=== PATIENT | male | born 1950 | race Caucasian/White ===

== ENCOUNTER 2017-09-29 19:05 | Emergency (ER) | payer MEDICARE ==
[~2017-09-29] VITALS: Ht 177.8 cm; Wt 108.9 kg
[~2017-09-29 19:05] MED LIST: "\\\"WATER PILL\\\""; AMLO5; GOUT MEDICATION; POTCHL10ER; THYROID MEDICATION
[2017-09-29] MEDS ORDERED: Kristalose20 GM PO (20:24)
[2017-09-29 20:28] LABS: Source, Urine Catheter
[2017-09-29 20:33] LABS: Bilirubin, Urine Neg (Neg); Blood, Urine 4+ (Neg); Glucose Qualitative, Urine Neg (Neg); Ketones, Urine Neg (Neg); Leukocyte Esterase, Urine Neg (Neg); Nitrite, Urine Neg (Neg); Protein, Urine Neg (Neg); Specific Gravity, Urine 1.005 (1.003-1.022); Urobilinogen, Urine NORM (Normal); pH, Urine 6.5 (5.0-8.0)
[2017-09-29 21:11] LABS: Appearance, Urine Clear (Clear); Color, Urine Pale Yellow (P-Yellow)
[2017-09-29 21:12] LABS: Amorphous Light (0-Heavy); Bacteria Few /hpf; Red Blood Cells, Urine 0-2 /hpf (0-2); Squamous Epithelial Cells Not Seen /hpf (Few); White Blood Cells, Urine 0-2 /hpf (0-5)
== END 2017-09-29 20:43 | disposition home or self-care (01) ==
LOC: ER 19:05
PROVIDERS: Emergency Medicine
DX: R33.9 Retention of urine, unspecified (principal); Z91.030 Bee allergy status; Z88.8 Allergy status to other drugs, medicaments and biological substances; Z79.899 Other long term (current) drug therapy; Z90.5 Acquired absence of kidney
CPT/HCPCS: 51702; 51798; 81001; 99283

== ENCOUNTER 2017-10-02 07:05 | Emergency (ER) | payer MEDICARE ==
[~2017-10-02] VITALS: Ht 162.6 cm; Wt 120.2 kg
[~2017-10-02 07:05] MED LIST changes: +Kristalose20 GM PO
== END 2017-10-02 07:51 | disposition home or self-care (01) ==
LOC: ER 07:05
DX: N99.840 Postprocedural hematoma of a genitourinary system organ or structure following a genitourinary system procedure (principal); N99.820 Postprocedural hemorrhage of a genitourinary system organ or structure following a genitourinary system procedure; Z91.030 Bee allergy status; Z88.8 Allergy status to other drugs, medicaments and biological substances; Z79.899 Other long term (current) drug therapy
CPT/HCPCS: 99282

== ENCOUNTER 2019-03-09 13:38 | Emergency (ER) | payer MEDICARE ==
[~2019-03-09] VITALS: Ht 177.8 cm; Wt 122.5 kg
[2019-03-09 14:10] LABS: BASOPHILS ABSOLUTE AUTO 0.04 K/mm3 (0.00-0.23); BASOPHILS PERCENT AUTO 1 % (0-2); EOSINOPHILS ABSOLUTE AUTO 0.09 K/mm3 (0.00-0.68); EOSINOPHILS PERCENT AUTO 1 % (0-6); Hematocrit 46.1 % (37.0-53.0); IMMATURE GRAN ABSOLUTE AUTO 0.05 K/mm3 (0.00-0.10); IMMATURE GRAN PERCENT AUTO 1 % (0-1); LYMPHOCYTES ABSOLUTE AUTO 1.29 K/mm3 (0.84-5.20); LYMPHOCYTES PERCENT AUTO 15 % (21-46); MONOCYTES ABSOLUTE AUTO 0.97 K/mm3 (0.16-1.47); MONOCYTES PERCENT AUTO 11 % (4-13); Mean Corpuscular HGB 26.6 pg (26.0-34.0); Mean Corpuscular HGB Conc 32.5 g/dL (31.5-36.5); Mean Corpuscular Volume 82 fL (80-100); Mean Platelet Volume 10.6 fL (9.1-12.4); NEUTROPHILS ABSOLUTE AUTO 6.43 K/mm3 (1.96-9.15); NEUTROPHILS PERCENT AUTO 73 % (41-73); Platelet Count 189 K/mm3 (150-400); RDW Coefficient Variation 14.6 % (11.7-14.2); RDW Standard Deviation 43.5 fL (35.1-46.3); Red Blood Cell Count 5.63 M/mm3 (4.30-5.90); White Blood Cell Count 8.87 K/mm3 (4.00-11.30)
[2019-03-09 14:35] LABS: Albumin, Blood 4.6 g/dL (3.4-5.0); Albumin/Globulin Ratio 1.5 (0.8-1.8); Bun/Creatinine Ratio 10.9 (12.0-20.0); Calcium, Blood 9.1 mg/dL (8.5-10.1); Creatinine, Blood 1.37 mg/dL (0.60-1.20); Total Protein, Blood 7.6 g/dL (6.4-8.2); Troponin I 0.023 ng/mL (0.000-0.040)
[2019-03-09] MEDS ORDERED: AMLO5 PO (15:39)
[2019-03-09] MEDS ORDERED: FURO20 PO (15:39)
[2019-03-09] MEDS ORDERED: LEVSOD125 PO (15:39)
[2019-03-09] MEDS ORDERED: CARV6.25 PO (15:39)
[2019-03-09] MEDS ORDERED: ALLO300 PO (15:40)
[2019-03-09] MEDS ORDERED: LISI20 PO (15:40)
[2019-03-09] MEDS ORDERED: ONDA4ODT MM (18:35)
== END 2019-03-09 19:01 | disposition home or self-care (01) ==
LOC: ER 13:38
PROVIDERS: Physician Assistant
DX: R55 Syncope and collapse (principal); I11.9 Hypertensive heart disease without heart failure; R17 Unspecified jaundice; R11.10 Vomiting, unspecified; M10.9 Gout, unspecified; Z91.030 Bee allergy status; Z91.038 Other insect allergy status; Z79.899 Other long term (current) drug therapy
CPT/HCPCS: 36415; 71046; 76705; 80053; 83690; 84484; 85025; 93005; 93010; 99284-25

== ENCOUNTER 2021-01-08 14:08 | Observation (INO) | payer MEDICARE, OTHER ==
[~2021-01-08] VITALS: Ht 177.8 cm; Wt 113.4 kg
[~2021-01-08 14:08] MED LIST changes: -ENTRESTO 24 MG1 EACH; -ENTRESTO 97 MG PO; -POTA10T PO; -SYNTHROID150 MCG PO
[2021-01-08] MEDS ORDERED: ENTRESTO 24 MG1 EACH (15:49)
[2021-01-08] MEDS ORDERED: ENTRESTO 97 MG PO (17:06)
[2021-01-08] MEDS ORDERED: SYNTHROID150 MCG PO (17:08)
--- NOTE | 2021-01-08 18:37 | NUR ---
PT QUITE PLEASNT TALKATIVE. A/O SINCE ADMIT. IS CONSTANTLY TELLING JOKES. STATES SOB WITH EXERTION. H/R REG, NO MURMERNOTED. IS DISTANT. LUNGS CLEAR, ON R.A. WHEN SITTING, NO SOB NOTED. ABLE TO TALK IN FULL SENTENCES. PRESENTS LIGHTLY ANX. BT X4 LAST BM YEST. VIODS PER BATHROOM. SBA. HAS HAD SOME DIZZINESS, BUT NO FALLS AT HOME. BED IN LOW POSITION, CALL LITE IN REACH, CALLS APPROP. REQUESTED HE TO HAVE SOMEONE WALK WITH HIM TO BATHROOM FOR SAFETY
--- NOTE | 2021-01-09 03:42 | NUR ---
SUMMARY: A/OX4, INDEPENDENT IN ROOM AND CALLS APPROPRIATELY FOR ASSIST. HE'S DENIED PAIN AND ALL OTHER COMPLAINTS T/O NOCTE. PT IS NSR W/OCC PVC'S AT 60'S-70'S BPM. 1500ML FLUID RESTRICT IN PLACE AND HE'S DIURESING WELL SINCE STARTING IV LASIX. BLE EDEMA IS 1+ AND IMPROVING. LS CLEAR ON RA AND PT DENIES SOB OR DYSPNEA. TROPS TRENDED UP SLIGHTLY (NOW 0.042 WAS 0.038) BUT PT IS ASYMPTOMATIC OF CARDIAC DISTRESS. VSS/AFEBRILE AND NO ACUTE CHANGES. WCTM AND REPORT TO DAY RN.
[2021-01-09 05:04] LABS: BASOPHILS ABSOLUTE AUTO 0.04 K/mm3 (0.00-0.23); BASOPHILS PERCENT AUTO 1 % (0-2); EOSINOPHILS ABSOLUTE AUTO 0.12 K/mm3 (0.00-0.68); EOSINOPHILS PERCENT AUTO 2 % (0-6); Hematocrit 41.8 % (37.0-53.0); Hemoglobin 13.4 g/dL (13.5-17.5); IMMATURE GRAN ABSOLUTE AUTO 0.03 K/mm3 (0.00-0.10); IMMATURE GRAN PERCENT AUTO 0 % (0-1); LYMPHOCYTES ABSOLUTE AUTO 1.09 K/mm3 (0.84-5.20); LYMPHOCYTES PERCENT AUTO 16 % (21-46); MONOCYTES ABSOLUTE AUTO 0.87 K/mm3 (0.16-1.47); MONOCYTES PERCENT AUTO 13 % (4-13); Mean Corpuscular HGB Conc 32.1 g/dL (31.5-36.5); Mean Corpuscular Volume 78 fL (80-100); Mean Platelet Volume 10.3 fL (9.1-12.4); NEUTROPHILS ABSOLUTE AUTO 4.79 K/mm3 (1.96-9.15); NEUTROPHILS PERCENT AUTO 69 % (41-73); Platelet Count 175 K/mm3 (150-400); RDW Coefficient Variation 15.7 % (11.7-14.2); RDW Standard Deviation 43.6 fL (35.1-46.3); Red Blood Cell Count 5.36 M/mm3 (4.30-5.90); White Blood Cell Count 6.94 K/mm3 (4.00-11.30)
[2021-01-09 05:40] LABS: Anion Gap 5 mmol/L (6-16); Blood Urea Nitrogen 14 mg/dL (8-24); Bun/Creatinine Ratio 14.4 (12.0-20.0); CO2, Blood 27 mmol/L (21-32); Calcium, Blood 8.4 mg/dL (8.5-10.1); Chloride, Blood 108 mmol/L (98-108); Creatinine, Blood 0.97 mg/dL (0.60-1.20); Glomerular Filtration Rate >60 (60-); Glucose, Blood 88 mg/dL (70-99); Magnesium, Blood 2.1 mg/dL (1.6-2.4); Potassium, Blood 3.1 mmol/L (3.5-5.5); Sodium, Blood 140 mmol/L (136-145)
--- NOTE | 2021-01-09 06:35 | NUR ---
K WAS 3.1 THIS AM W/40MEQ KRIDER RX'D BY . HE WAS ALSO ALERTED TO TROP TRENDING SLIGHTLY UPWARD (NOW 0.042) W/O S/S CARDIAC DISTRESS. NO NEW ORDERS RECIEVED PERTAINING TO THAT.
[2021-01-09] MEDS ORDERED: POTA10T PO (14:10)
--- NOTE | 2021-01-09 16:54 | NUR ---
CLIENT AA&OX4. DENIES SOB, HALL IS RELIEVED BY REST. BLE EDEMA RESOLVED. LCTA ALL FEILDS. DENIES PAIN. CLIENT EDUCATED ON HEART ZONES, DAILY WEIGHT, S/S OF CHF TO REPORT TO MD, LOW SODIUM DIET AND NEW MEDICATIONS. FOLLOW UP APPT MADE AND REVIEWED. PT HAS NO QUESTIONS OR CONCERNS AT THIS TIME. DISCHARGED TO HOME WITH SPOUSE.
== END 2021-01-09 15:20 | disposition home or self-care (01) ==
LOC: ER 14:08 → MEDS 14:09
PROVIDERS: ADMIT Internal Medicine
DX: I11.0 Hypertensive heart disease with heart failure (principal); I50.43 Acute on chronic combined systolic (congestive) and diastolic (congestive) heart failure; I35.0 Nonrheumatic aortic (valve) stenosis; E03.9 Hypothyroidism, unspecified; M10.9 Gout, unspecified; R79.89 Other specified abnormal findings of blood chemistry; Z85.528 Personal history of other malignant neoplasm of kidney; Z88.4 Allergy status to anesthetic agent; Z91.038 Other insect allergy status; Z90.5 Acquired absence of kidney
CPT/HCPCS: 36415; 80048; 83735; 84484; 85025; 93005; 93010; A9270; J1650; J1940; J3480

== ENCOUNTER → 2021-01-08 | Outpatient (CLI) | payer MEDICARE, OTHER ==
[~2021-01-08] MED LIST changes: +ALLO300 PO; +AMLO5 PO; +CARV6.25 PO; +ENTRESTO 24 MG1 EACH; +ENTRESTO 97 MG PO; +FURO40 PO; +LEVSOD125 PO; +LISI20 PO; +ONDA4ODT MM; +POTA10T PO; +SYNTHROID150 MCG PO
[2021-01-08 13:08] LABS: BASOPHILS ABSOLUTE AUTO 0.04 K/mm3 (0.00-0.23); BASOPHILS PERCENT AUTO 1 % (0-2); EOSINOPHILS ABSOLUTE AUTO 0.13 K/mm3 (0.00-0.68); EOSINOPHILS PERCENT AUTO 2 % (0-6); Hematocrit 41.7 % (37.0-53.0); Hemoglobin 13.4 g/dL (13.5-17.5); IMMATURE GRAN ABSOLUTE AUTO 0.04 K/mm3 (0.00-0.10); IMMATURE GRAN PERCENT AUTO 1 % (0-1); LYMPHOCYTES ABSOLUTE AUTO 1.14 K/mm3 (0.84-5.20); LYMPHOCYTES PERCENT AUTO 14 % (21-46); MONOCYTES ABSOLUTE AUTO 1.05 K/mm3 (0.16-1.47); MONOCYTES PERCENT AUTO 13 % (4-13); Mean Corpuscular HGB 25.2 pg (26.0-34.0); Mean Corpuscular HGB Conc 32.1 g/dL (31.5-36.5); Mean Corpuscular Volume 78 fL (80-100); Mean Platelet Volume 10.4 fL (9.1-12.4); NEUTROPHILS ABSOLUTE AUTO 5.91 K/mm3 (1.96-9.15); NEUTROPHILS PERCENT AUTO 71 % (41-73); Platelet Count 187 K/mm3 (150-400); RDW Coefficient Variation 15.9 % (11.7-14.2); RDW Standard Deviation 43.8 fL (35.1-46.3); Red Blood Cell Count 5.32 M/mm3 (4.30-5.90); White Blood Cell Count 8.31 K/mm3 (4.00-11.30)
[2021-01-08 13:34] LABS: Alanine Aminotransfer (ALT/SGP 19 U/L (12-78); Albumin, Blood 3.8 g/dL (3.4-5.0); Albumin/Globulin Ratio 1.4 (0.8-1.8); Alk Phos 80 U/L (40-126); Anion Gap 7 mmol/L (6-16); Aspartate Aminotrans (AST/SGOT 15 U/L (12-37); Bilirubin, Total 2.4 mg/dL (0.1-1.0); Blood Urea Nitrogen 16 mg/dL (8-24); CO2, Blood 28 mmol/L (21-32); Calcium, Blood 8.4 mg/dL (8.5-10.1); Chloride, Blood 107 mmol/L (98-108); Creatinine, Blood 1.07 mg/dL (0.60-1.20); Globulin, Blood 2.7 g/dL (2.2-4.0); Glomerular Filtration Rate >60 (60-); Glucose, Blood 98 mg/dL (70-99); Potassium, Blood 3.5 mmol/L (3.5-5.5); Sodium, Blood 142 mmol/L (136-145); Total Protein, Blood 6.5 g/dL (6.4-8.2); Troponin I 0.043 ng/mL (0.000-0.040)
== END | disposition home or self-care (01) ==
LOC: LAB SHORT 13:04
PROVIDERS: Physician Assistant
DX: R06.00 Dyspnea, unspecified (principal)
CPT/HCPCS: 80053; 83880; 84484; 85025

== ENCOUNTER 2021-04-24 00:51 | Emergency (ER) | payer MEDICARE, OTHER ==
[~2021-04-24] VITALS: Ht 177.8 cm; Wt 98.9 kg
[~2021-04-24 00:51] MED LIST changes: +ENTRESTO 24 MG1 EACH; +ENTRESTO 97 MG PO; +POTA10T PO; +SYNTHROID150 MCG PO
[2021-04-24 01:33] LABS: BASOPHILS ABSOLUTE AUTO 0.04 K/mm3 (0.00-0.23); BASOPHILS PERCENT AUTO 0 % (0-2); EOSINOPHILS ABSOLUTE AUTO 0.12 K/mm3 (0.00-0.68); EOSINOPHILS PERCENT AUTO 1 % (0-6); Hematocrit 48.7 % (37.0-53.0); Hemoglobin 15.6 g/dL (13.5-17.5); IMMATURE GRAN ABSOLUTE AUTO 0.04 K/mm3 (0.00-0.10); IMMATURE GRAN PERCENT AUTO 0 % (0-1); LYMPHOCYTES ABSOLUTE AUTO 0.95 K/mm3 (0.84-5.20); LYMPHOCYTES PERCENT AUTO 8 % (21-46); MONOCYTES ABSOLUTE AUTO 1.43 K/mm3 (0.16-1.47); MONOCYTES PERCENT AUTO 13 % (4-13); Mean Corpuscular HGB 25.8 pg (26.0-34.0); Mean Corpuscular Volume 81 fL (80-100); Mean Platelet Volume 10.1 fL (9.1-12.4); NEUTROPHILS PERCENT AUTO 77 % (41-73); Platelet Count 192 K/mm3 (150-400); RDW Standard Deviation 46.2 fL (35.1-46.3); Red Blood Cell Count 6.04 M/mm3 (4.30-5.90); White Blood Cell Count 11.28 K/mm3 (4.00-11.30)
[2021-04-24 01:54] LABS: Albumin, Blood 4.2 g/dL (3.4-5.0); Albumin/Globulin Ratio 1.4 (0.8-1.8); Bilirubin, Total 1.6 mg/dL (0.1-1.0); Bun/Creatinine Ratio 13.3 (12.0-20.0); Calcium, Blood 8.6 mg/dL (8.5-10.1); Creatinine, Blood 1.28 mg/dL (0.60-1.20); Globulin, Blood 2.9 g/dL (2.2-4.0); Potassium, Blood 4.2 mmol/L (3.5-5.5); Total Protein, Blood 7.1 g/dL (6.4-8.2); Troponin I 0.017 ng/mL (0.000-0.040)
== END 2021-04-24 05:13 | disposition home or self-care (01) ==
LOC: ER 00:51
PROVIDERS: Physician Assistant
DX: R07.89 Other chest pain (principal); I50.9 Heart failure, unspecified; Z88.6 Allergy status to analgesic agent; Z91.038 Other insect allergy status; Z79.899 Other long term (current) drug therapy
CPT/HCPCS: 36415; 71046; 80053; 83880; 84484; 85025; 93005; 93010; 99285-25

== ENCOUNTER 2024-06-13 11:29 | Inpatient (IN) | payer MEDICARE, OTHER ==
[~2024-06-13] VITALS: Ht 175.3 cm; Wt 81.2 kg
[2024-06-13 12:04] LABS: BASOPHILS ABSOLUTE AUTO 0.02 K/mm3 (0.00-0.23); BASOPHILS PERCENT AUTO 0 % (0-2); EOSINOPHILS ABSOLUTE AUTO 0.12 K/mm3 (0.00-0.68); EOSINOPHILS PERCENT AUTO 2 % (0-6); Hematocrit 39.7 % (37.0-53.0); IMMATURE GRAN ABSOLUTE AUTO 0.03 K/mm3 (0.00-0.10); IMMATURE GRAN PERCENT AUTO 0 % (0-1); LYMPHOCYTES PERCENT AUTO 11 % (21-46); MONOCYTES ABSOLUTE AUTO 0.92 K/mm3 (0.16-1.47); MONOCYTES PERCENT AUTO 13 % (4-13); Mean Corpuscular HGB 22.6 pg (26.0-34.0); Mean Corpuscular HGB Conc 30.2 g/dL (31.5-36.5); Mean Corpuscular Volume 75 fL (80-100); Mean Platelet Volume 10.7 fL (9.1-12.4); NEUTROPHILS ABSOLUTE AUTO 5.47 K/mm3 (1.96-9.15); NEUTROPHILS PERCENT AUTO 74 % (41-73); Platelet Count 206 K/mm3 (150-400); RDW Standard Deviation 49.6 fL (35.1-46.3); Red Blood Cell Count 5.31 M/mm3 (4.30-5.90); White Blood Cell Count 7.36 K/mm3 (4.00-11.30)
[2024-06-13] MEDS ORDERED: TIZANIDINE HCL213 PO (12:05)
[2024-06-13] MEDS ORDERED: TAMSULOSIN HCL0.4 M1 PO (12:05)
[2024-06-13] MEDS ORDERED: CARVEDILOL3.125 MG PO (12:05)
[2024-06-13] MEDS ORDERED: ENTRESTO 97 MG1 EAC3 PO (12:06)
[2024-06-13 12:11] LABS: Albumin, Blood 3.6 g/dL (3.4-5.0); Albumin/Globulin Ratio 1.3 (0.8-1.8); Bilirubin, Total 2.3 mg/dL (0.1-1.0); Bun/Creatinine Ratio 14.7 (12.0-20.0); Calcium, Blood 8.6 mg/dL (8.5-10.1); Creatinine, Blood 1.56 mg/dL (0.60-1.20); Globulin, Blood 2.7 g/dL (2.2-4.0); Potassium, Blood 3.8 mmol/L (3.5-5.5); Total Protein, Blood 6.3 g/dL (6.4-8.2)
[2024-06-13] MEDS ORDERED: Amiodarone HCl 50 MG / ML 3 ML Amp IV ONE (14:49)
[2024-06-13] MEDS ORDERED: FLU VACC TS2024-25(6MOS UP)/PF 45 MCG/0.5 ML SYRINGE IM ONE (14:50)
[2024-06-13] MEDS ORDERED: Amiodarone HCl 200 MG Tab PO SCH (15:00)
[2024-06-13 15:31] LABS: Anti-Xa UFH, PHA Monitoring <0.10 IU/mL; International Normalized Ratio 1.18; Prothrombin Time Results 12.5 Sec (9.7-11.5)
[2024-06-13] MEDS ORDERED: Dose Adjust by Pharmacy XX STA ×2 (15:43→23:19)
[2024-06-13] MEDS ORDERED: Heparin Sodium 5000 Units/ML 1ML MDV IV ONE (15:45)
[2024-06-13] MEDS ORDERED: Heparin Sodium,Porcine/0.5 NS 500 ML IV SCH (15:45)
[2024-06-13 16:55] VITALS: BP 88/79
[2024-06-13] MEDS ORDERED: JARDIANCE10 MG PO (17:04)
[2024-06-13] MEDS ORDERED: DOXY100 PO (17:07)
--- NOTE | 2024-06-13 17:57 | NUR ---
ASSUMPTION OF CARE/SHIFT SUMMARY: PT ALERT AND ORIETNED, CALM AND COOPERATIVE TO CARE. HE HAS SCATTERED BRUISING T/O. BRUISE ON OUTSIDE CORNER OF RIGHT EYE, PT REPORTS FROM SLIP OUT OF BED, OTHERWISE SKIN INTACT. NO BREAKDOWN NOTED. NURSE ASSIST FOR IV MANAGEMENT, DIZZY AND WEAK. HR IN THE 120'S-130'S, AFIB, SBP IN THE 80'S-90'S, HEPARIN GTT RUNNING PER ORDERS. LS DIM, COARSE AT BASES. +BS, NO TENDERNESS ON PALPATION. BLE EDEMA +3, DEEP. PT REPORTS SOB WITH EXERTION. ANTICIPATING CARDIOVERSION TOMORROW, PT WILL BE NPO AT MIDNIGHT FOR PROCEDURE. WILL CONTINUE TO MONITOR AND REPORT TO REHANGER RN.
[2024-06-13] MEDS ORDERED: Amiodarone HCl 200 MG Tab PO ONE (21:00)
[2024-06-13] MEDS ORDERED: Phenylephrine HCl 100 MCG/ML-NS 10MLSYR (1MG/10ML) IV ONE (21:05)
[2024-06-13] MEDS ORDERED: ePHEDrine Sulfate 50 MG/ML 1ML Injection XX ONE (21:05)
[2024-06-13 21:17] VITALS: BP 101/73
[2024-06-13 23:59] VITALS: BP 97/79
[2024-06-14] VITALS (37 sets, daily range): BP systolic 78–103; BP diastolic 38–83
--- NOTE | 2024-06-14 02:39 | NUR ---
SHIFT SUMMARY NEURO: WNL CARDIAC: AFIB RVR 120'S. HEPARIN GTT RUNNING. PO AMIO GIVEN. PULSES PRESENT. LUNGS: INSPIRATORY WHEEZES. ON RA. GI/: WNL-NPO SINCE MIDNIGHT SKIN: BRUISE FROM FALL PRIOR TO ADMIT, RIGHT PERIORBITAL AREA RN REQUESTED MAG LEVEL. NO ORDERS AT THIS TIME.
[2024-06-14 04:22] LABS: BASOPHILS ABSOLUTE AUTO 0.04 K/mm3 (0.00-0.23); BASOPHILS PERCENT AUTO 1 % (0-2); EOSINOPHILS ABSOLUTE AUTO 0.08 K/mm3 (0.00-0.68); EOSINOPHILS PERCENT AUTO 1 % (0-6); Hematocrit 39.2 % (37.0-53.0); Hemoglobin 11.8 g/dL (13.5-17.5); IMMATURE GRAN ABSOLUTE AUTO 0.01 K/mm3 (0.00-0.10); IMMATURE GRAN PERCENT AUTO 0 % (0-1); LYMPHOCYTES ABSOLUTE AUTO 0.76 K/mm3 (0.84-5.20); LYMPHOCYTES PERCENT AUTO 13 % (21-46); MONOCYTES ABSOLUTE AUTO 0.76 K/mm3 (0.16-1.47); MONOCYTES PERCENT AUTO 13 % (4-13); Mean Corpuscular HGB 22.4 pg (26.0-34.0); Mean Corpuscular HGB Conc 30.1 g/dL (31.5-36.5); Mean Corpuscular Volume 75 fL (80-100); Mean Platelet Volume 9.9 fL (9.1-12.4); NEUTROPHILS ABSOLUTE AUTO 4.23 K/mm3 (1.96-9.15); NEUTROPHILS PERCENT AUTO 72 % (41-73); Platelet Count 167 K/mm3 (150-400); RDW Coefficient Variation 18.6 % (11.7-14.2); Red Blood Cell Count 5.26 M/mm3 (4.30-5.90); White Blood Cell Count 5.88 K/mm3 (4.00-11.30)
[2024-06-14] MEDS ORDERED: Dose Adjust by Pharmacy XX STA ×3 (04:38→19:24)
[2024-06-14 04:48] LABS: Albumin, Blood 3.4 g/dL (3.4-5.0); Albumin/Globulin Ratio 1.4 (0.8-1.8); Bilirubin, Total 2.3 mg/dL (0.1-1.0); Bun/Creatinine Ratio 16.9 (12.0-20.0); Calcium, Blood 8.9 mg/dL (8.5-10.1); Creatinine, Blood 1.48 mg/dL (0.60-1.20); Globulin, Blood 2.5 g/dL (2.2-4.0); Potassium, Blood 3.9 mmol/L (3.5-5.5); Total Protein, Blood 5.9 g/dL (6.4-8.2)
[2024-06-14] MEDS ORDERED: Levothyroxine Sodium 0.15 MG Tab PO SCH (06:00)
[2024-06-14] MEDS ORDERED: Lactated Ringer's 1,000 ML IV SCH (07:00)
[2024-06-14] MEDS ORDERED: propofoL 20 ML IV ONE ×2 (07:04)
[2024-06-14] MEDS ORDERED: Lidocaine HCl 2% 20 ML MDV ONE (07:05)
[2024-06-14] MEDS ORDERED: Ondansetron HCl 2 MG / ML 2ML Vial ONE (07:06)
--- NOTE | 2024-06-14 07:10 | NUR ---
Transfer to ICU 10 for Cardioversion Replaced dressing to right ac iv d/t it leaking. Zoll Patches applied to chest. Patient put on monitor in ICU. Pt AFIB rhythm.
[2024-06-14] MEDS ORDERED: Lidocaine HCl 4% 5 ML SDA TOP PRN (07:35)
[2024-06-14] MEDS ORDERED: Benzocaine Oral Spray 0.5ML UD ONE (07:59)
--- NOTE | 2024-06-14 08:24 | NUR ---
0824 CARDIOVERSION SUHAS Carrasquillo.. IN ROOM ALONG WITH SHIRT BANDER AND DR MOTA LIDOACAINE 4% GIVEN TO BACK OF THROAT. BP Q 3 MIN. ZOLL ON TO SYNC BP TO Q 2 MIN. PULSE 116 BP 102/88 MAP 93 RR 33 SPO2 100% ENTITLE CO2 AT 12 OXYGEN IS POM MASK AT 15L 0828 : ЕЛЕНА GIVING SEDATIVE MEDICATION VIA IV 0829: DR MOTA PLACING SCOPE FOR CHIARA WITH SHIRT BANDER 0830: PULSE 101 RR 20 BP 108/88 SPO2 98% 0831: BP 70/49 MAP 65 PULSE 108 RR 22 SPO2 96% SCOPE IN PLACE 100MG OF KELVIN GIVEN IV BY SUHAS 0832: BP 68/58 MAP 64 SPO2 89% RR 30 PULSE [address] 0833: EPHEDRINE IV BY SUHAS GIVEN SEE ANETHEISA NOTES 0836 BUBBLE AGGITATION INJECTED. PT COUGHING. [id number] SPO2 89% BP 120/83 MAP 94 RR 25 0837 SPO2 91% PULSE 118 ENTITLE 12 SCOPE OUT OK TO DO CARDIOVERSION BY DR MOTA [place] 200J BY DR MOTA 0838 CHARGE TO SHOCK... SPO2 73% RHYTHM 110 TO 77 BP 70/58 MAP 64 0839 KELVIN-SYNEPHERINE BY SUHAS GIVEN 0841 GIVE AMIODARONE 150MG WITH FLUSH PULSE 88 AFIB RR 24 BP 89/64 MAP 73 ENTITLE 15 SPO2 90%. 0844 AMIODARONE 150MG GIVEN AGAIN RT BAGGING PT SPO2 87% RR 35 PULSE 82 IV FLUID GOING WIDE OPEN . 0846 OPA TAKEN OUT AND PT SNOROUS, OPA BACK IN POM MASK ON PT NOW. ANETHISIA VERBAL AROUSAL PT GRIMMACES CURRENTLY. 0848: SPO2 77% RT BAGGING PT PULSE 77 BP 64/51 MAP 58 0851 POM MASK ON RR 32 SPO2 72% PULSE 79 BP 88/55 MAP 65 PT COUGHING 0852 BIPAP AT 14/8 SPO2 100 PLACED ON PT BY RT. 0854: BP 65/46 MAP 54 PULSE 83 RR 25 BIPAP (100% 14/10) SPO2 81% 0855 ORDER FOR LEVOPHED BY SUHAS FERNANDES GIVEN KELVIN-SYNEPHERINE 0859 EPHEDRINE IV PULSE 88 RR 30 BIPAP ON SPO2 94% SETTINGS BIPAP 12/10 BACK UP 14 100% 0901: BP 78/67 MAP 73 PULSE 85 RR 26 94% SPO2. PT TALKING WITH NURSE WITH BIPAP ON. 902 BP 93/81 MAP 87 PULSE 85 SPO2 98% RR 30 ON BIPAP 0904: ANETHESIA END TIME MAP 73
[2024-06-14] MEDS ORDERED: Amiodarone HCl 50 MG / ML 3 ML Amp IV ONE ×2 (08:40→08:45)
[2024-06-14] MEDS ORDERED: Enoxaparin 40 MG/0.4 ML SYR SC SCH (09:00)
[2024-06-14] MEDS ORDERED: Heparin Sodium 5000 Units/ML 1ML MDV IV ONE (12:15)
[2024-06-14] MEDS ORDERED: Amiodarone HCl 200 MG Tab PO SCH (14:00)
--- NOTE | 2024-06-14 14:31 | NUR ---
MEET AND GREET WITH PT/FAMILY. PT'S EJECTION FRACTION BEEN TRENDING DOWN OVER THE LAST SEVERAL YEARS. ECHO TODAY 06/14/24 HAS EF 14%. ELEVATED BNP 2525. CALCIFIED AORTIC VALVE WITH SEVERE STENOSIS. ECHO 01/31/09 EF 65% ECHO 02/26/11 EF 55-60% ECHO 03/08/12 EF 42% ECHO 12/20/14 EF 50% PT DECLINED PALLIATIVE CARE SERVICES AT THIS TIME. HE IS WANTING TO PURSUE VALVE REPLACEMENT. PT HAS BEEN ACCEPTED AT [facility], PENDING AVAILABLE BED. PC WILL REMAIN AVAILABLE NEEDED.
--- NOTE | 2024-06-14 18:39 | NUR ---
DAY SHIFT SUMMARY PT WAS CARDIOVERTED THIS AM BY DR. MOTA W DR. STAPLES PROVIDING SEDATION. FOLLOWING CARDIOVERSION THE PT REQUIRING BIPAP AND LOW DOSE LEVOPHED FOR APPROX ONE HOUR POST CARDIOVERSION AND THEN WAS TITRATED OFF OF LEVOPHED AND ONTO RM AIR. PT HAS REMAINED ALERT AND ORIENTED THIS SHIFT COMMUNICATING APPROPRIATELY W STAFF. PT'S BP SOFT BUT REMAINED STABLE MAP >65 THIS SHIFT. SPO2 >92% ON RM AIR. MONITOR SHOWING SINUS ARRYTHMIA 80'S-100 W PAC'S AND PVC'S POST CARDIOVERSION. PT UP IN RECLINER FOR MOST OF THE DAY. PT W POOR PO FOOD INTAKE REPORTING POOR APPETTITE. PT'S HEPARIN GTT RUNNING AT ORDERED RATE ALL SHIFT. WILL REPORT TO ONCOMING RN. PT VOIDED THIS AM BUT DENIED NEED TO VOID THIS AFTERNOON, BLADDER SCAN SHOWING 124ML. WILL REPORT TO ONCOMING RN.
--- NOTE | 2024-06-14 20:27 | NUR ---
ASSUME CARE: PT A/Ox4 AND PLEASANT W/CARE. PT STATES THE PT WAS POSSIBLY HAVING SOME HALLUCINATIONS AND SEEING DOGS OUTSIDE HIS ROOM, WHICH WERE NOT THERE. ALSO STATES THAT HE HAS SOME INSTANCES OF THIS AT HOME. SBP 80s-90s, MAP>65, DENIES CP AND PRESSURE AT THIS TIME. MONITOR SHOWS SINUS RYTHM W/ PVCs AND PACS, RYTHM VERY IRREGULAR. HR 80s-90s. SPO2>90% ON RA, DENIES SOB. PT HAS PRODUCTIVE, WET COUGH W/RUNNY NOSE. PT STATES HE WAS TESTED A COUPLE DAYS AGO AT URGENT CARE FOR COVID WHICH WAS NEGATIVE. PT ABLE TO STAND AT BEDSIDE W/ 2 PERSON ASSIST TO USE THE URINAL. PT SOMEWHAT WEAK. OUTPUT MINIMAL AND ZULEIKA COLORED. HEPARIN GTT AT 17 U/KG/HR INFUSING IN RT AC. PT INSTRUCTED TO USE CALL LIGHT FOR NEEDS. WILL UPDATE NEEDED.
[2024-06-15] VITALS (17 sets, daily range): BP systolic 79–125; BP diastolic 51–112
[2024-06-15 03:24] LABS: BASOPHILS ABSOLUTE AUTO 0.03 K/mm3 (0.00-0.23); BASOPHILS PERCENT AUTO 0 % (0-2); EOSINOPHILS ABSOLUTE AUTO 0.04 K/mm3 (0.00-0.68); EOSINOPHILS PERCENT AUTO 1 % (0-6); Hematocrit 38.2 % (37.0-53.0); Hemoglobin 11.6 g/dL (13.5-17.5); IMMATURE GRAN ABSOLUTE AUTO 0.02 K/mm3 (0.00-0.10); IMMATURE GRAN PERCENT AUTO 0 % (0-1); LYMPHOCYTES ABSOLUTE AUTO 0.84 K/mm3 (0.84-5.20); LYMPHOCYTES PERCENT AUTO 12 % (21-46); MONOCYTES PERCENT AUTO 13 % (4-13); Mean Corpuscular HGB 22.7 pg (26.0-34.0); Mean Corpuscular HGB Conc 30.4 g/dL (31.5-36.5); Mean Corpuscular Volume 75 fL (80-100); Mean Platelet Volume 9.8 fL (9.1-12.4); NEUTROPHILS ABSOLUTE AUTO 5.21 K/mm3 (1.96-9.15); NEUTROPHILS PERCENT AUTO 74 % (41-73); Platelet Count 172 K/mm3 (150-400); RDW Coefficient Variation 19.1 % (11.7-14.2); RDW Standard Deviation 49.9 fL (35.1-46.3); Red Blood Cell Count 5.11 M/mm3 (4.30-5.90); White Blood Cell Count 7.04 K/mm3 (4.00-11.30)
[2024-06-15 03:45] LABS: Albumin, Blood 3.4 g/dL (3.4-5.0); Albumin/Globulin Ratio 1.3 (0.8-1.8); Bilirubin, Total 2.8 mg/dL (0.1-1.0); Bun/Creatinine Ratio 14.4 (12.0-20.0); Calcium, Blood 8.6 mg/dL (8.5-10.1); Creatinine, Blood 2.09 mg/dL (0.60-1.20); Globulin, Blood 2.7 g/dL (2.2-4.0); Potassium, Blood 4.3 mmol/L (3.5-5.5); Total Protein, Blood 6.1 g/dL (6.4-8.2)
[2024-06-15] MEDS ORDERED: Dose Adjust by Pharmacy XX STA (04:52)
--- NOTE | 2024-06-15 05:04 | NUR ---
SHIFT SUMMARY: PT A/Ox4 AND COOPERATIVE W/CARE T/O THE NIGHT. PT HAD SOME HALLUCINATIONS WHERE HE ASKED ABOUT THE CATS OUTSIDE, AND ALSO SOME CONFUSION THINKING HE WAS LEAVING RIGHT AWAY TO TRANSFER TO [place], WANTING TO PUT ON HIS PANTS AND GET READY. PT REORIENTED. SBP 80-90s, MAP>65. HR 80s-100s. MONITOR SHOWS SINUS ARRYTHMIA W/ PVCs AND PACs. PT DENIES CP OR PRESSURE. PT DESAT 86-88s W/SLEEP, 2L NC APPLIED SPO2 >90%. HEPARIN GTT INFUSING AT 17 U/KG/HR IN RT AC. PT ABLE TO STAND AT BEDSIDE W/ MINIMAL ASSISTANCE TO USE URINAL. URINE ZULEIKA IN COLOR, 200 OUTPUT T/O THE NIGHT. CALL LIGHT IN REACH AND BED ALARM ON. WILL REPORT TO ONCOMING RN.
[2024-06-15] MEDS ORDERED: Furosemide 10 MG / ML 2ML Vial IV STA (06:28)
[2024-06-15] MEDS ORDERED: DOBUtamine 250 MG/D5W 250 ML 250 ML IV SCH (07:10)
--- NOTE | 2024-06-15 07:30 | NUR ---
ASSUMED CARE. PT SITTING UPRIGHT IN BED, A&0X4. HE IS ALERT AND ABLE TO ANSWER QUESTIONS APPROPRIATELY. PT IS ON RA WITH SPO2 AT >96%. SYSTOLIC BP IN 80-90S. MAP >65. RESTING HR BETWEEN 90-100S. CONTINUOUS CARDIAC MONITORING IN PLACE. PT IS CONTINENT OF URINE WITH URINAL AT BEDSIDE. HEPARIN INFUSING AT 17UNITS/KG/HR. BED IN LOWEST POSITION, CALL LIGHT IN REACH. 1000AM TRANSFER OF CARE GROUND TRANSPORT ASSUMED CARE OF PATIENT FOR TRANSFER TO [place]. DOBUTAMINE 2.5MCG/KG/MIN AND HEPARIN 17UNIT/KG/HR. HE IS A&0x4. GAVE REPORT TO JAS [facility] AT [place].
[2024-06-15] MEDS ORDERED: Empagliflozin 10 MG TAB PO SCH (09:00)
== END 2024-06-15 09:50 | disposition short-term general hospital (02) | DRG 308 ==
LOC: ER 11:29 → ICUE 14:47 → PCU 14:47 → ICUE 06-14 06:45
PROVIDERS: Emergency Medicine; Family Medicine Adult Medicine; Internal Medicine Cardiovascular Disease; ADMIT Internal Medicine
PROC: 3E033XZ Introduction of Vasopressor into Peripheral Vein, Percutaneous Approach (ICD-10-PCS; 2024-06-13)
PROC: 5A2204Z Restoration of Cardiac Rhythm, Single (ICD-10-PCS; principal; 2024-06-14)
DX: I48.91 Unspecified atrial fibrillation (principal); I50.43 Acute on chronic combined systolic (congestive) and diastolic (congestive) heart failure; I35.0 Nonrheumatic aortic (valve) stenosis; I11.0 Hypertensive heart disease with heart failure; I95.9 Hypotension, unspecified; E03.9 Hypothyroidism, unspecified; I42.0 Dilated cardiomyopathy; Z51.5 Encounter for palliative care; I50.82 Biventricular heart failure; E78.5 Hyperlipidemia, unspecified; Z88.8 Allergy status to other drugs, medicaments and biological substances; Z90.5 Acquired absence of kidney; Z98.52 Vasectomy status; Z98.890 Other specified postprocedural states; Z91.038 Other insect allergy status; Z79.899 Other long term (current) drug therapy; Z79.890 Hormone replacement therapy
CPT/HCPCS: 36415; 71045; 80053; 83880; 84484; 85025; 85520; 85610; 93005; 93010; 93306; 93312; 93325; 94660; 94760; 99285-25; A9270; J0282; J1250; J1644; J1940; J2371; J2405; J2704; J7060; J7120